=== PATIENT | male | born 1970 | race African-American/Black ===

== ENCOUNTER 2016-10-11 04:17 | Emergency (ER) | payer OTHER ==
--- NOTE | ~2016-10-11 | EKG ---
PATIENT: BILL PRECIADO UNIT #: [id number] Ventricular Rate: 95 BPM Atrial Rate: 95 BPM P-R Interval: 160 ms QRS Duration: 92 ms Q-T Interval: 388 ms QTC Calculation(Bezet): 487 ms P [place]: 42 degrees Calculated R Davis: -33 degrees Calculated T Davis: 60 degrees Diagnosis Line: Normal sinus rhythm Diagnosis Line: Left axis deviation Diagnosis Line: Anterolateral infarct , age undetermined Diagnosis Line: Abnormal ECG Diagnosis Line: When compared with ECG of 26-JAN-2011 09:44, Diagnosis Line: Anterolateral infarct is now Present Diagnosis Line: Criteria for Inferior infarct are no longer Diagnosis Line: Present Diagnosis Line: Confirmed by KAREN WATSON MD ([id number]) on Diagnosis Line: 10/11/2016 8:11:05 AM INTERPRETING MD: SHIRLEY MARTINEZ
[~2016-10-11 04:17] MED LIST: ACETAMINOPHEN PO; AUGMENTIN PO; BP MED; CARAFATE1 G PO; CATAPRES0.1 MG PO; CEPHALEXIN250 MG PO; CLINDAMYCIN HC300 MG PO; DECADRON PO; FLEXERIL PO; GLUCOPHAGE500 M1 PO; HUMULIN 70/30 V10 ML SUBQ; HUMULIN 70100 UNITS/ SUBQ; HYDRALAZINE HCL50 MG PO; HYDROCHLOROTHIA25 MG PO; INDOMETHACIN50 MG PO; KETOPROFEN PO; LESCOL PO; LIPITOR20 MG PO; LISINOPRIL PO; LORTAB 7.5-5001 TAB PO; METFORMIN PO; NORVASC10 MG PO; NOVOLIN 70/30 V10 ML INJ; NOVOLIN 70100 UNITS/; PERCOCET 10/3251 TAB PO; PRINIVIL40 MG PO; PROTONIX PO; SKELAXIN PO; VICODIN 5/500 T1 TAB PO; Z-CLINZ 10 PAC1 EA PO; ZESTRIL40 MG PO; ZOCOR PO; ZOCOR20 MG PO
[2016-10-11] MEDS ORDERED: LIPITOR40 MG PO (04:26)
[2016-10-11] MEDS ORDERED: ASPIRIN EC81 M1 PO (04:26)
[2016-10-11] MEDS ORDERED: PRINIVIL40 MG PO (04:27)
[2016-10-11] MEDS ORDERED: HUMULIN 70100 UNIT/1 SUBQ (04:27)
[2016-10-11] MEDS ORDERED: CHLORTHALIDONE25 MG PO (04:27)
[2016-10-11 05:11] LABS: POC - CKMB 1.5 ng/mL (0.0-7.9); POC - TROPONIN <0.05 ng/mL (<=0.05)
[2016-10-11 06:11] LABS: BASOPHIL# 0.1 X10e3 (0-0.3); BASOPHIL% 1.2 % (0-2.5); EOSINOPHIL# 0.1 X10e3 (0-0.7); EOSINOPHIL% 1.6 % (0.0-7.0); HEMATOCRIT 42.8 % (38.0-50.0); HEMOGLOBIN 14.6 gm/dL (13.0-16.0); LYMPHOCYTE# 2.3 X10e3 (1.0-3.5); LYMPHOCYTE% 25.4 % (17.0-45.0); MEAN CELL VOLUME 85.3 FL (83-96); MEAN CORPUSCULAR HEMOGLOBIN 29.2 PG (28-34); MEAN CORPUSCULAR HGB CONC 34.3 g/dL (30-36); MEAN PLATELET VOLUME 10.4 FL (6.5-11.5); MONOCYTE# 0.6 X10e3 (0-1.0); MONOCYTE% 6.1 % (3.0-12.0); NEUTROPHIL# 5.9 X10e3 (1.5-7.1); NEUTROPHIL% 65.7 % (40-75); PLATELET COUNT 221 X10e3 (140-420); RED BLOOD COUNT 5.01 X10e (3.90-5.60); RED CELL DISTRIBUTION WIDTH 13.8 % (11.0-15.5)
[2016-10-11 06:13] LABS: DIFF IND NO
[2016-10-11 06:18] LABS: URINE SOURCE CLEAN CATCH
[2016-10-11 06:29] LABS: URINE APPEARANCE CLEAR; URINE BILIRUBIN NEG (NEG); URINE BLOOD 1+ (NEG); URINE COLOR YELLOW; URINE GLUCOSE >1000 MG/DL (NEG); URINE KETONE NEG (NEG); URINE LEUKOCYTE ESTERASE NEG (NEG); URINE NITRATE NEG (NEG); URINE PH 6.5 (5-8); URINE PROTEIN 3+ (NEG); URINE SPECIFIC GRAVITY 1.031 (1.003-1.035); URINE UROBILINOGEN 0.2 MG/DL (NEG)
[2016-10-11 06:31] LABS: URINE BACTERIA AUWI NEG (NEGATIVE); URINE SQUAMOUS EPITHELIAL CELL NONE SEEN /[HPF]; UWBCS1 AUWI 0-2 (0-5)
[2016-10-11 06:32] LABS: CULTURE INDICATED? NO
[2016-10-11 06:40] LABS: BILIRUBIN, DIRECT 0.1 mg/dL (0.0-0.2); BILIRUBIN,INDIRECT 0.3 mg/dL (0.0-0.9); BILIRUBIN,TOTAL 0.4 mg/dL (0.2-2.0); BUN/CREATININE RATIO 10.66; CALCIUM SERUM 8.8 mg/dL (8.4-10.2); CREATININE SERUM 1.5 mg/dL (0.6-1.4); GLOM FILT RATE Estimated 64.7 mL/min (>60); POTASSIUM 3.1 mmol/L (3.5-5.1); PROTEIN TOTAL SERUM 6.5 g/dL (6.0-8.3)
[2016-10-11 06:44] LABS: AMPHETAMINE NEG (NEG); BARBITURATES NEG (NEG); BENZODIAZEPINES NEG (NEG); COCAINE NEG (NEG); MARIJUANA POS (NEG); OPIATES POS (NEG); TRICYCLIC ANTIDEPRESSANTS NEG (NEG); U METHADONE NEG (NEG)
[2016-10-11 06:48] LABS: POC - CKMB 2.6 ng/mL (0.0-7.9); POC - TROPONIN <0.05 ng/mL (<=0.05)
== END 2016-10-11 09:30 | disposition home or self-care (01) ==
LOC: CED 04:17
PROVIDERS: Emergency Medicine
DX: E11.65 Type 2 diabetes mellitus with hyperglycemia (principal); E87.6 Hypokalemia; Z79.899 Other long term (current) drug therapy
CPT/HCPCS: 36415; 80048; 80076; 80307; 81003; 82553; 82947; 84484; 85025; 93005; 99283; G0480

== ENCOUNTER 2016-11-19 04:28 | Emergency (ER) | payer OTHER ==
--- NOTE | ~2016-11-19 | EKG ---
PATIENT: BILL PRECIADO UNIT #: [id number] Ventricular Rate: 101 BPM Atrial Rate: 101 BPM P-R Interval: 152 ms QRS Duration: 82 ms Q-T Interval: 358 ms QTC Calculation(Bezet): 464 ms P [place]: 29 degrees Calculated R [place]: -22 degrees Calculated T [place]: 70 degrees Diagnosis Line: Sinus tachycardia Diagnosis Line: Possible Inferior infarct , age undetermined Diagnosis Line: Cannot rule out Anterior infarct (cited on or Diagnosis Line: before 26-JAN-2011) Diagnosis Line: Abnormal ECG Diagnosis Line: When compared with ECG of 11-OCT-2016 04:19, Diagnosis Line: Questionable change in initial forces of Lateral Diagnosis Line: leads Diagnosis Line: Inverted T waves have replaced nonspecific T wave Diagnosis Line: abnormality in Lateral leads Diagnosis Line: Confirmed by ÁLVARO THOMAS MD ([id number]) on 11/24/2016 Diagnosis Line: 2:28:28 PM INTERPRETING MD: MARTHA MARTINEZ
--- NOTE | ~2016-11-19 | CR2 ---
[facility] A Service of [facility] RADIOLOGY TEXT RESULTS PATIENT: BILL PRECIADO LOCATION: [facility] : 74 UNIT #: [id number] AGE: [address]: Toan Zafar MD SEX: M ORDER DR: [id number] [facility] [address] [place], [place] [address] [id number] E MR#: [id number] Acc #: [id number] NAME: BILL PRECIADO : 1970 SEX: M STUDY DATE/TIME: 11/19/2016 6:28 UNIT: ZACH ROOM: STUDY DESCRIPTION: CR Abdomen Acute Series Attending Physician: Toan Zafar M.D. Ordering Physician: Nikki Hernandez A.P.R.N. Primary Care Physician: Marco A Betancourt Sr., M.D. MEDICAL IMAGING REPORT This report is preliminary unless electronic signature is present EXAM Acute abdominal series 11/19/2016 INDICATION 46-year-old female with abdominal pain, right-sided pain and shortness of air. Nausea and vomiting symptoms 3 days. Hypertension. TECHNIQUE Frontal chest and upright and supine views of the abdomen were performed. COMPARISON Correlation is made with CT 02/21/2014. FINDINGS Cardiac silhouette within normal limits. The vascularity is normal. Lungs clear. Upright view demonstrates no free air. Moderate stool throughout the colon. No dilated air-filled loops of large or small bowel. Probable vascular calcifications in the pelvis. No organomegaly or mass effect. IMPRESSION 1. Negative frontal chest. 2. No free air. 3. Nonspecific but nonobstructive bowel gas pattern. Moderate stool burden throughout the colon. Dictated by... Ad Edwards M.D. THIS IS AN ELECTRONICALLY VERIFIED REPORT Ad Edwards M.D. at 11/19/2016 3:31 PM [facility] A Service of [facility] RADIOLOGY TEXT RESULTS PATIENT: BILL PRECIADO LOCATION: [facility] : 74 UNIT #: [id number] AGE: [address]: Toan Zafar MD SEX: M ORDER DR: CACHORRO/adolph TD: 11/19/2016 13:53 JOB #: [id number] MEDICAL IMAGING REPORT Page 1 of 1 COPY
--- NOTE | ~2016-11-19 | CT2 ---
[facility] A Service of [facility] RADIOLOGY TEXT RESULTS PATIENT: BILL PRECIADO LOCATION: [facility] : 74 UNIT #: [id number] AGE: [address]: Toan Zafar MD SEX: M ORDER DR: [id number] [facility] [address] [place], [place] [address] [id number] E MR#: [id number] Acc #: [id number] NAME: BILL PRECIADO : 1970 SEX: M STUDY DATE/TIME: 11/19/2016 7:48 UNIT: [facility] ROOM: STUDY DESCRIPTION: CT Abd and Pelv W Cont Attending Physician: Toan Zafar M.D. Ordering Physician: Nikki Hernandez A.P.R.N. Primary Care Physician: Marco A Betancourt Sr., M.D. MEDICAL IMAGING REPORT This report is preliminary unless electronic signature is present EXAM Abdomen and pelvis CT with contrast HISTORY Right-sided abdominal pain for the past week. TECHNIQUE Axial images were obtained with intravenous contrast. 100 mL of Isovue was used. This CT exam was performed with one or more of the following radiation dose reduction techniques: automatic exposure control, adjustment of mA and/or kV according to patient size, and iterative reconstruction. COMPARISON STUDIES 02/21/2014. FINDINGS In the liver, there is a small cyst or hemangioma in the left lobe, unchanged from previous scan. No suspicious liver lesions are seen. The spleen, pancreas, kidneys, and adrenals are also unchanged. Bilateral adrenal masses are noted versus hyperplasia. This is stable since the previous CT. There is no evidence of retroperitoneal adenopathy or ascites, and no distended bowel loops are seen. The appendix is normal. In the pelvis, there is no evidence of adenopathy, mass, or fluid collection. IMPRESSION Negative abdomen and pelvis CT. Bilateral adrenal enlargement is noted, but it is unchanged from 2014. Normal appendix. No acute or inflammatory changes are seen. Dictated by... Stoney Davis M.D. [facility] A Service of [facility] RADIOLOGY TEXT RESULTS PATIENT: BILL PRECIADO LOCATION: [facility] : 74 UNIT #: [id number] AGE: [address]: Toan Zafar MD SEX: M ORDER DR: THIS IS AN ELECTRONICALLY VERIFIED REPORT Stoney Davis M.D. at 11/19/2016 4:49 PM Dacia TD: 11/19/2016 14:07 JOB #: [id number] MEDICAL IMAGING REPORT Page 1 of 1 COPY
[~2016-11-19 04:28] MED LIST changes: +ASPIRIN EC81 M1 PO; +CHLORTHALIDONE25 MG PO; +HUMULIN 70100 UNIT/1 SUBQ; +LIPITOR40 MG PO
[2016-11-19 05:39] LABS: URINE SOURCE CLEAN CATCH
[2016-11-19 05:47] LABS: URINE APPEARANCE CLEAR; URINE BILIRUBIN NEG (NEG); URINE BLOOD 2+ (NEG); URINE COLOR YELLOW; URINE GLUCOSE >1000 MG/DL (NEG); URINE KETONE NEG (NEG); URINE LEUKOCYTE ESTERASE NEG (NEG); URINE NITRATE NEG (NEG); URINE PH 5.5 (5-8); URINE PROTEIN 3+ (NEG); URINE SPECIFIC GRAVITY 1.038 (1.003-1.035); URINE UROBILINOGEN 0.2 MG/DL (NEG)
[2016-11-19 05:49] LABS: URINE BACTERIA AUWI NEG (NEGATIVE); URINE SQUAMOUS EPITHELIAL CELL NONE SEEN /[HPF]; UWBCS1 AUWI 0-2 (0-5)
[2016-11-19 05:57] LABS: CULTURE INDICATED? NO
[2016-11-19 05:57] LABS: BASOPHIL# 0.1 X10e3 (0-0.3); BASOPHIL% 0.8 % (0-2.5); EOSINOPHIL# 0.2 X10e3 (0-0.7); EOSINOPHIL% 2.4 % (0.0-7.0); HEMATOCRIT 39.2 % (38.0-50.0); HEMOGLOBIN 13.2 gm/dL (13.0-16.0); LYMPHOCYTE# 2.7 X10e3 (1.0-3.5); LYMPHOCYTE% 32.5 % (17.0-45.0); MEAN CELL VOLUME 85.8 FL (83-96); MEAN CORPUSCULAR HEMOGLOBIN 28.8 PG (28-34); MEAN CORPUSCULAR HGB CONC 33.6 g/dL (30-36); MEAN PLATELET VOLUME 9.2 FL (6.5-11.5); MONOCYTE# 0.5 X10e3 (0-1.0); MONOCYTE% 6.2 % (3.0-12.0); NEUTROPHIL# 4.7 X10e3 (1.5-7.1); NEUTROPHIL% 58.1 % (40-75); PLATELET COUNT 210 X10e3 (140-420); RED BLOOD COUNT 4.57 X10e (3.90-5.60); RED CELL DISTRIBUTION WIDTH 13.9 % (11.0-15.5); WHITE BLOOD COUNT 8.1 X10e3 (4.0-10.5)
[2016-11-19 06:02] LABS: DIFF IND NO
[2016-11-19 06:03] LABS: POC - CKMB 1.3 ng/mL (0.0-7.9); POC - TROPONIN <0.05 ng/mL (<=0.05)
[2016-11-19 06:10] LABS: AMPHETAMINE NEG (NEG); BARBITURATES NEG (NEG); BENZODIAZEPINES NEG (NEG); COCAINE NEG (NEG); MARIJUANA POS (NEG); OPIATES NEG (NEG); TRICYCLIC ANTIDEPRESSANTS NEG (NEG); U METHADONE NEG (NEG)
[2016-11-19 06:30] LABS: ALBUMIN SERUM 2.9 g/dL (3.5-5.0); BILIRUBIN, DIRECT 0.1 mg/dL (0.0-0.2); BILIRUBIN,INDIRECT 0.7 mg/dL (0.0-0.9); BILIRUBIN,TOTAL 0.8 mg/dL (0.2-2.0); CALCIUM SERUM 8.1 mg/dL (8.4-10.2); CREATININE SERUM 1.5 mg/dL (0.6-1.4); GLOM FILT RATE Estimated 64.7 mL/min (>60); POTASSIUM 3.5 mmol/L (3.5-5.1); PROTEIN TOTAL SERUM 5.9 g/dL (6.0-8.3)
[2016-11-19 07:19] LABS: POC - TROPONIN <0.05 ng/mL (<=0.05)
== END 2016-11-19 19:29 | disposition home or self-care (01) ==
LOC: CED 04:28
PROVIDERS: Emergency Medicine; Nurse Practitioner
DX: R10.11 Right upper quadrant pain (principal); R73.9 Hyperglycemia, unspecified; E11.9 Type 2 diabetes mellitus without complications; I10 Essential (primary) hypertension; F17.210 Nicotine dependence, cigarettes, uncomplicated; Z79.82 Long term (current) use of aspirin; Z79.899 Other long term (current) drug therapy
CPT/HCPCS: 36415; 74022; 74177; 80048; 80076; 80307; 81003; 82150; 82553; 82947; 83605; 83690; 84484; 85025; 93005; 96361; 96374; 96375; 99285; J1885; Q9967